=== PATIENT | female | born 1940 | race Caucasian/White ===

== ENCOUNTER 2022-11-26 08:34 | Day surgery (SDC) | payer MEDICARE, OTHER ==
[~2022-11-26 08:34] MED LIST: Bupivacaine 0.5% 50 ML MDV ONE; Lidocaine 1% with EPINEPHrine 1:100,000 50 ML MDV ONE
[2022-11-26] MEDS ORDERED: Propofol 200 MG/20 ML SDV ONE ×2 (09:16→10:38)
[2022-11-26] MEDS ORDERED: fentaNYL 50 MCG/ML SDV ONE (09:16)
[2022-11-26] MEDS ORDERED: Dextrose 5%-Lactated Ringers 1,000 ML IV SCH (09:37)
[2022-11-26] MEDS ORDERED: ceFAZolin 1 GM Vial ONE (10:06)
[2022-11-26] MEDS ORDERED: Linezolid 600 MG/300 ML Premix Bag IRR ONE (10:34)
[2022-11-26] MEDS ORDERED: Bacitracin Oint 1 GM U/D Packet ONE (10:52)
[2022-11-26] MEDS ORDERED: Bacitracin Oint 1 GM U/D Packet TOP ONE (10:53)
== END 2022-11-26 12:23 | disposition home or self-care (01) ==
LOC: JP.SDS 08:34
PROVIDERS: ATTEND Surgery
DX: C44.729 Squamous cell carcinoma of skin of left lower limb, including hip (principal); L98.9 Disorder of the skin and subcutaneous tissue, unspecified; I10 Essential (primary) hypertension; E03.9 Hypothyroidism, unspecified; Z87.891 Personal history of nicotine dependence; Z88.1 Allergy status to other antibiotic agents
CPT/HCPCS: 11603; 12032; 88305; J0690; J2020; J2704; J3010; J3490; J7121